=== PATIENT | male | born 1965 | race Caucasian/White ===

== ENCOUNTER 2021-06-30 10:19 | Inpatient (IN) | payer BC ==
[~2021-06-30] VITALS: Ht 182.9 cm; Wt 100.0 kg
[2021-06-30 11:11] LABS: BASOPHILS # (AUTO) 0.1 X10'3 (0-0.2); EOSINOPHILS # (AUTO) 0.2 X10'3 (0-0.9); EOSINOPHILS % (AUTO) 2.5 % (0-6); HEMATOCRIT 47.2 % (42.0-52.0); HEMOGLOBIN 15.9 g/dl (14.0-17.9); LYMPHOCYTES % (AUTO) 32.4 % (21-51); MEAN CORPUSCULAR HEMOGLOBIN 30.9 PG (27.0-31.0); MEAN CORPUSCULAR HGB CONC 33.8 g/dL (33.0-36.5); MEAN CORPUSCULAR VOLUME 91.4 FL (78-98); MEAN PLATELET VOLUME 7.1 FL (7.4-10.4); MONOCYTES # (AUTO) 0.6 X10'3 (0-0.9); MONOCYTES % (AUTO) 9.2 % (2-12); NEUTROPHILS # (AUTO) 3.5 X10'3 (1.8-7.7); NEUTROPHILS % (AUTO) 54.9 % (42-75); PLATELET COUNT 200 X10'3 (140-440); RED BLOOD COUNT 5.16 X10'6 (4.70-6.10); WHITE BLOOD COUNT 6.3 X10'3 (4.5-11.0)
[2021-06-30 11:29] LABS: ALANINE AMINOTRANSFERASE 24 U/L (12-78); ALBUMIN 4.3 G/DL (3.4-5.0); ALBUMIN/GLOBULIN RATIO 1.3 (1.1-1.5); ALKALINE PHOSPHATASE 45 IU/L (46-116); ANION GAP 8 (8-16); ASPARTATE AMINO TRANSFERASE 19 U/L (10-37); BLOOD UREA NITROGEN 14 MG/DL (7-18); BUN/CREATININE RATIO 20.6 (5.4-32.0); CALCIUM 8.9 MG/DL (8.5-10.1); CHLORIDE 107 MMOL/L (99-107); CREATININE 0.68 MG/DL (0.60-1.10); GLUCOSE 125 MG/DL (70-104); POTASSIUM 4.6 MMOL/L (3.5-5.1); SODIUM 140 MMOL/L (135-145); TOTAL CARBON DIOXIDE 25.1 MMOL/L (24-32); TOTAL PROTEIN 7.5 G/DL (6.4-8.2); eGFR > 90 ML/MIN
[2021-06-30 11:37] LABS: LIPASE 1168 U/L (73-393); MAGNESIUM 2.1 MG/DL (1.5-2.4)
[2021-06-30 11:47] LABS: APTT 26 SECONDS (22-32)
--- NOTE | 2021-06-30 11:53 | NUR ---
Pt moved to ER bed 10
[2021-06-30 12:23] LABS: CHOLESTEROL 238 MG/DL (0-200)
[2021-06-30] MEDS ORDERED: piperacillin/tazo 3.375gm/50ml 50 ML IV ONE (12:30)
[2021-06-30] MEDS ORDERED: normal saline 1000ML IV soln IVB ONE (12:30)
[2021-06-30] MEDS ORDERED: ATOR10TA70 PO (12:57)
[2021-06-30] MEDS ORDERED: LISI-644 PO (12:57)
[2021-06-30] MEDS ORDERED: LISI20TA28 PO (12:57)
[2021-06-30] MEDS ORDERED: LEVO75TA PO (12:57)
[2021-06-30] MEDS ORDERED: LABE100T5 PO (12:57)
[2021-06-30] MEDS ORDERED: ondansetron/PF 4mg/2ml inj IV PRN (13:10)
[2021-06-30] MEDS ORDERED: magnesium Cl slow-release 64mg tablet PO PRN (13:10)
[2021-06-30] MEDS ORDERED: magnesium 2GM in 50ml NS 50 ML IV PRN (13:10)
[2021-06-30] MEDS ORDERED: potassium Cl 20 mEq SR tablet PO PRN ×2 (13:10)
[2021-06-30] MEDS ORDERED: potassium CL 10mEq/100ml bag 100 ML IV PRN (13:10)
[2021-06-30] MEDS ORDERED: magnesium 4gm in 100ml NS 100 ML IV PRN (13:10)
[2021-06-30] MEDS: normal saline 1000ml 1,000 ML IV SCH ×2 (13:18→20:56)
[2021-06-30 13:58] LABS: POTASSIUM 4.2 MMOL/L (3.5-5.1)
--- NOTE | 2021-06-30 17:51 | NUR ---
PT. TUCKED IN TO ROOM 346b. FLUIDS STARTED. VS TAKEN AND WNL. NPO SIGN UP. PT. DENIES ANY NEED FOR PAIN MEDICATIONS AT THIS TIME.
[2021-06-30 17:56] VITALS: BP 146/88
--- NOTE | 2021-06-30 18:14 | NUR ---
gAVE REPORT TO Kelsey LEBRON
--- NOTE | 2021-06-30 18:25 | NUR ---
Patient in room [facility]. I have received report from CHRISTEL LEBRON and had the opportunity to ask questions and assume patient care.
[2021-06-30] MEDS: HYDROcodone/acetaminophen 5mg/325mg tablet PO PRN (19:13)
[2021-06-30] MEDS: K and/or MAG REPLACEMENT MC SCH (20:00)
[2021-06-30] MEDS: labetalol 100mg tablet PO SCH (20:55)
[2021-06-30] MEDS ORDERED: lisinopril 20mg tablet PO SCH (21:00)
[2021-06-30] MEDS ORDERED: diatr meglu/diatrizoate 30ml oral sol.-(3 dose) bottle PO SCH (21:00)
--- NOTE | 2021-06-30 21:55 | NUR ---
CT SCAN WITH IV CONTRAST ORDER CCOMFIRMED WITH DR VASQUEZ.
[2021-07-01] VITALS (17 sets, daily range): BP systolic 100–133; BP diastolic 52–98
[2021-07-01] MEDS: HYDROcodone/acetaminophen 5mg/325mg tablet PO PRN (04:07)
[2021-07-01 06:17] LABS: BASOPHILS % (AUTO) 0.4 % (0-1); EOSINOPHILS # (AUTO) 0.2 X10'3 (0-0.9); EOSINOPHILS % (AUTO) 3.1 % (0-6); HEMATOCRIT 42.2 % (42.0-52.0); HEMOGLOBIN 14.2 g/dl (14.0-17.9); LYMPHOCYTES # (AUTO) 1.7 X10'3 (1.1-4.8); LYMPHOCYTES % (AUTO) 33.8 % (21-51); MEAN CORPUSCULAR HEMOGLOBIN 30.6 PG (27.0-31.0); MEAN CORPUSCULAR HGB CONC 33.6 g/dL (33.0-36.5); MEAN CORPUSCULAR VOLUME 91.3 FL (78-98); MEAN PLATELET VOLUME 7.1 FL (7.4-10.4); MONOCYTES # (AUTO) 0.5 X10'3 (0-0.9); MONOCYTES % (AUTO) 10.1 % (2-12); NEUTROPHILS # (AUTO) 2.7 X10'3 (1.8-7.7); NEUTROPHILS % (AUTO) 52.6 % (42-75); PLATELET COUNT 190 X10'3 (140-440); RED BLOOD COUNT 4.62 X10'6 (4.70-6.10); WHITE BLOOD COUNT 5.1 X10'3 (4.5-11.0)
[2021-07-01 06:29] LABS: APTT 27 SECONDS (22-32)
--- NOTE | 2021-07-01 06:33 | NUR ---
Problems reprioritized. Patient report given, questions answered & plan of care reviewed with CHRISTEL LEBRON..
[2021-07-01 06:39] LABS: ALBUMIN 3.6 G/DL (3.4-5.0); ANION GAP 11 (8-16); BLOOD UREA NITROGEN 10 MG/DL (7-18); CALCIUM 8.3 MG/DL (8.5-10.1); CHLORIDE 108 MMOL/L (99-107); CREATININE 0.77 MG/DL (0.60-1.10); GLUCOSE 116 MG/DL (70-104); POTASSIUM 4.1 MMOL/L (3.5-5.1); SODIUM 145 MMOL/L (135-145); TOTAL CARBON DIOXIDE 25.8 MMOL/L (24-32); eGFR > 90 ML/MIN
[2021-07-01] MEDS ORDERED: BUPIVAcaine 0.5% inj/PF 30 ML ONE (07:11)
[2021-07-01] MEDS: levoTHYROXINE 75mcg tablet PO SCH (08:00)
[2021-07-01] MEDS: labetalol 100mg tablet PO SCH ×2 (08:00→20:10)
[2021-07-01] MEDS: K and/or MAG REPLACEMENT MC SCH ×2 (08:00→20:00)
[2021-07-01] MEDS: atorvastatin 10mg tablet PO SCH (08:00)
[2021-07-01] MEDS: lisinopril 20mg tablet PO SCH (08:00)
[2021-07-01] MEDS ORDERED: iohexol 300mg/ml 100ml inj. ONE (08:30)
--- NOTE | 2021-07-01 08:41 | NUR ---
pT. DOWN TO CT SCAN WITH iv CONTRAST
--- NOTE | 2021-07-01 08:50 | NUR ---
CALLED REPORT TO [facility]
[2021-07-01] MEDS ORDERED: INDOCYANINE GREEN 25 MG/10 ML VIAL IV ONE (08:53)
[2021-07-01] MEDS: normal saline 1000ml 1,000 ML IV SCH ×3 (09:10→22:55)
[2021-07-01] MEDS ORDERED: ringers solution, lacted 1,000 ML IV SCH (09:30)
[2021-07-01] MEDS ORDERED: proCHLORperazine 10 MG/2 ml inj IV PRN (09:30)
[2021-07-01] MEDS ORDERED: morphine 2 MG/ML inj. syringe IV PRN (09:30)
[2021-07-01] MEDS ORDERED: morphine 4 MG/ML inj SYRINge IV PRN (09:30)
[2021-07-01] MEDS ORDERED: meperidine/PF 25mg/ml syringe IV PRN ×3 (09:30)
[2021-07-01] MEDS ORDERED: ondansetron/PF 4mg/2ml inj IV PRN (09:30)
[2021-07-01] MEDS ORDERED: midazolam 1 mg/ML 2ml injection ONE (09:39)
[2021-07-01] MEDS ORDERED: propofol inj 20 ML IV ONE (09:40)
[2021-07-01] MEDS ORDERED: rocuronium 10mg/ml inj IV ONE (09:40)
[2021-07-01] MEDS ORDERED: fentaNYL /PF 50mcg/ml 5ml ampule ONE (09:40)
--- NOTE | 2021-07-01 09:52 | NUR ---
OR CHARGE AWARE PT HAS NOT BEEN WIPED DOWN, NO BG CHECK, AND THAT AM MEDS INCLUDING BETA LORENA NOT GIVEN YET.
[2021-07-01] MEDS ORDERED: ceFOXitin 1000 MG inj ONE ×2 (09:56)
[2021-07-01] MEDS ORDERED: dexamethasone sod phosphate 4mg/ml inj. ONE (09:56)
[2021-07-01 10:15] LABS: LIPASE 86 U/L (73-393)
[2021-07-01] MEDS ORDERED: glycopyrrolate 0.2mg/ml inj ONE (10:40)
[2021-07-01] MEDS ORDERED: ondansetron/PF 4mg/2ml inj ONE (10:40)
[2021-07-01] MEDS ORDERED: neostigmine methylsulfate 1 MG/ML 10ml vial ONE (10:40)
[2021-07-01] MEDS ORDERED: sugammadex 200mg/2ml injection IV ONE (11:00)
--- NOTE | 2021-07-01 11:04 | NUR ---
Received from OR via GREGORY , accompanied by Anesthesiologist MOLINA and report given by Anesthesiolgist. PATIENT WITH 20G PIV IN RIGHT UE RUNNING LR AT 100. DENIES PAIN AT THIS TIME. 10L MASK ON WITH 98% SATURATIONS. VSS. 4 ABDOMINAL BANDAIDS PRESENT AND VSS AT THIS TIME. DENIES PAIN. Addendum: 07/01/21 at 1111 by Harpreet Garcia RN, RN Amended: Links added.
[2021-07-01] MEDS ORDERED: hydrALAZINE 20mg/ml inj. IV PRN (11:30)
--- NOTE | 2021-07-01 12:04 | NUR ---
PATIENT HAS MET ALL CRITERIA FOR TRANSFER TO THE SURGICAL FLOOR. VSS. DRESSINGS INTACT. BED LOW, CALL LIGHT PRESENT AND 2 RAILS UP. RN PRESENT TO ACCEPT CARE OF PATIENT AND REPORT HAS BEEN CALLED. ALL QUESTIONS ANSWERED TO ACCEPTING RN. VSS. AND DAUGHTER PRESENT, GLASSES ON AND BLANKET RETURNED TO PATIENT. VSS. PASSIVE TRANSFER X2 TO GET BACK TO BED FROM GURNEY AND SLIDE BOARD. PATIENT RN PRESENT TO ACCEPT CARE AND TO ASSESS PATIENT. Addendum: 07/01/21 at 1224 by Harpreet Sy - VI RN Amended: Links added.
--- NOTE | 2021-07-01 12:23 | NUR ---
Pt. arrived from recovery. Rambling inappropriately but is oriented. Asking for food. Transferred to bed on 3LPM 02, 93% SA02 VS WNL. Family at bedside at this time.
[2021-07-01] MEDS: HYDROcodone/acetaminophen 10/325mg tab PO PRN ×2 (15:42→18:57)
[2021-07-01] MEDS: ceFOXitin inj 1,000 MG in normal saline 100ml IV soln 100 ML IV SCH ×2 (17:33→23:28)
[2021-07-01] MEDS: morphine 2 MG/ML inj. syringe IV PRN ×2 (17:42→23:28)
--- NOTE | 2021-07-01 18:18 | NUR ---
gAVE REPORT TO LUCAS LEBRON
--- NOTE | 2021-07-01 18:21 | NUR ---
Patient in room [facility]. I have received report from CHRISTEL LEBRON and had the opportunity to ask questions and assume patient care.
[2021-07-02] VITALS: BP 117/66
[2021-07-02] MEDS: morphine 2 MG/ML inj. syringe IV PRN ×2 (04:34→11:13)
[2021-07-02] MEDS: normal saline 1000ml 1,000 ML IV SCH ×3 (05:26→19:15)
--- NOTE | 2021-07-02 06:31 | NUR ---
Problems reprioritized. Patient report given, questions answered & plan of care reviewed with RAY RN.
--- NOTE | 2021-07-02 06:34 | NUR ---
Patient in room [facility] 346. I have received report from LUCAS LEBRON and had the opportunity to ask questions and assume patient care.
[2021-07-02 06:41] LABS: ALBUMIN 3.3 G/DL (3.4-5.0); ANION GAP 7 (8-16); BLOOD UREA NITROGEN 12 MG/DL (7-18); BUN/CREATININE RATIO 18.8 (5.4-32.0); CHLORIDE 109 MMOL/L (99-107); CREATININE 0.64 MG/DL (0.60-1.10); GLUCOSE 128 MG/DL (70-104); SODIUM 144 MMOL/L (135-145); TOTAL CARBON DIOXIDE 28.5 MMOL/L (24-32); eGFR > 90 ML/MIN
[2021-07-02 06:42] LABS: BASOPHILS % (AUTO) 0.1 % (0-1); EOSINOPHILS % (AUTO) 0.1 % (0-6); HEMATOCRIT 37.8 % (42.0-52.0); LYMPHOCYTES # (AUTO) 1.6 X10'3 (1.1-4.8); MEAN CORPUSCULAR HEMOGLOBIN 31.3 PG (27.0-31.0); MEAN CORPUSCULAR HGB CONC 34.5 g/dL (33.0-36.5); MEAN CORPUSCULAR VOLUME 90.8 FL (78-98); MEAN PLATELET VOLUME 7.2 FL (7.4-10.4); MONOCYTES % (AUTO) 7.3 % (2-12); NEUTROPHILS # (AUTO) 10.7 X10'3 (1.8-7.7); NEUTROPHILS % (AUTO) 80.5 % (42-75); PLATELET COUNT 183 X10'3 (140-440); RED BLOOD COUNT 4.16 X10'6 (4.70-6.10); RED CELL DISTRIBUTION WIDTH 12.7 % (11.5-14.5); WHITE BLOOD COUNT 13.3 X10'3 (4.5-11.0)
--- NOTE | 2021-07-02 07:15 | NUR ---
Dr Alcala stated pt will be ready to DC home from a surgical perspective when pt has gas/ bowel activity. VI Rainey notified.
[2021-07-02] MEDS: atorvastatin 10mg tablet PO SCH (07:46)
[2021-07-02] MEDS: levoTHYROXINE 75mcg tablet PO SCH (07:46)
[2021-07-02] MEDS: labetalol 100mg tablet PO SCH ×2 (07:46→19:42)
[2021-07-02] MEDS: lisinopril 20mg tablet PO SCH (07:47)
[2021-07-02] MEDS: HYDROcodone/acetaminophen 10/325mg tab PO PRN ×3 (07:51→20:06)
[2021-07-02 07:59] VITALS: BP 120/65
[2021-07-02] MEDS: K and/or MAG REPLACEMENT MC SCH ×2 (08:00→20:00)
[2021-07-02] MEDS: metroNIDAZOLE-Flagyl 500mg/NS 100 ML IV SCH ×2 (09:31→16:27)
[2021-07-02] MEDS: ciprofloxacin 250mg tablet PO SCH ×2 (10:26→21:30)
[2021-07-02 11:00] VITALS: BP 123/70
[2021-07-02 18:00] VITALS: BP 128/68
--- NOTE | 2021-07-02 18:05 | NUR ---
Problems reprioritized. Patient report given, questions answered & plan of care reviewed with PRUDENCE RN.
--- NOTE | 2021-07-02 18:43 | NUR ---
Patient in room [facility] 346. I have received report from RAY LEBRON and had the opportunity to ask questions and assume patient care.
[2021-07-03] VITALS: BP 110/65
[2021-07-03] MEDS: metroNIDAZOLE-Flagyl 500mg/NS 100 ML IV SCH ×2 (00:03→07:11)
[2021-07-03] MEDS: normal saline 1000ml 1,000 ML IV SCH (02:45)
--- NOTE | 2021-07-03 06:01 | NUR ---
Student documentation: I have reviewed and agree with all interventions, assessments performed and documented by CATALINA VILLA.
--- NOTE | 2021-07-03 06:01 | NUR ---
Student Medication Administration: For this medication-pass time frame, all medication were reviewed, dispensed, administered and documented per hospital policy by CATALINA VILLA.
--- NOTE | 2021-07-03 06:23 | NUR ---
Patient report given, questions answered & plan of care reviewed with Redd RN.
--- NOTE | 2021-07-03 06:23 | NUR ---
Problems reprioritized. Patient report given, questions answered & plan of care reviewed with RAY RN.
--- NOTE | 2021-07-03 06:29 | NUR ---
Patient in room [facility] 346. I have received report from Junie LEBRON and had the opportunity to ask questions and assume patient care.
[2021-07-03 07:00] VITALS: BP 163/93
[2021-07-03 07:04] LABS: BASOPHILS # (AUTO) 0.1 X10'3 (0-0.2); BASOPHILS % (AUTO) 0.8 % (0-1); EOSINOPHILS # (AUTO) 0.1 X10'3 (0-0.9); EOSINOPHILS % (AUTO) 1.8 % (0-6); HEMATOCRIT 39.4 % (42.0-52.0); HEMOGLOBIN 13.4 g/dl (14.0-17.9); LYMPHOCYTES # (AUTO) 2.5 X10'3 (1.1-4.8); LYMPHOCYTES % (AUTO) 32.5 % (21-51); MEAN CORPUSCULAR HEMOGLOBIN 31.5 PG (27.0-31.0); MEAN CORPUSCULAR VOLUME 92.9 FL (78-98); MEAN PLATELET VOLUME 7.1 FL (7.4-10.4); MONOCYTES # (AUTO) 0.7 X10'3 (0-0.9); MONOCYTES % (AUTO) 8.9 % (2-12); NEUTROPHILS # (AUTO) 4.4 X10'3 (1.8-7.7); PLATELET COUNT 180 X10'3 (140-440); RED BLOOD COUNT 4.24 X10'6 (4.70-6.10); WHITE BLOOD COUNT 7.8 X10'3 (4.5-11.0)
[2021-07-03] MEDS ORDERED: lisinopril 10 MG tablet PO SCH (07:08)
[2021-07-03] MEDS: levoTHYROXINE 75mcg tablet PO SCH (07:10)
[2021-07-03] MEDS: atorvastatin 10mg tablet PO SCH (07:10)
[2021-07-03] MEDS: labetalol 100mg tablet PO SCH (07:11)
[2021-07-03 07:28] VITALS: BP 163/93
[2021-07-03 07:49] LABS: ALBUMIN 3.5 G/DL (3.4-5.0); ANION GAP 11 (8-16); BLOOD UREA NITROGEN 13 MG/DL (7-18); BUN/CREATININE RATIO 16.9 (5.4-32.0); CALCIUM 8.1 MG/DL (8.5-10.1); CHLORIDE 107 MMOL/L (99-107); CHOL/HDL RATIO 3.8 (0.00-4.99); CHOLESTEROL 167 MG/DL (0-200); CREATININE 0.77 MG/DL (0.60-1.10); GLUCOSE 103 MG/DL (70-104); HDL CHOLESTEROL 44 MG/DL (35-60); LDL CHOLESTEROL 97 MG/DL (50-100); MAGNESIUM 1.8 MG/DL (1.5-2.4); POTASSIUM 3.8 MMOL/L (3.5-5.1); SODIUM 145 MMOL/L (135-145); TOTAL CARBON DIOXIDE 27.5 MMOL/L (24-32); TRIGLYCERIDES 125 MG/DL (20-135); eGFR > 90 ML/MIN
[2021-07-03] MEDS: K and/or MAG REPLACEMENT MC SCH (08:00)
--- NOTE | 2021-07-03 08:00 | NUR ---
Went to hang patient ABX, previous antibiotic was hung as a secondary with the primary at the same level of the secondary medication. The medication did not infuse and was full.
[2021-07-03] MEDS ORDERED: HYDR-3965 PO (10:33)
[2021-07-03 11:00] VITALS: BP 140/79
[2021-07-03] MEDS: ciprofloxacin 250mg tablet PO SCH (11:03)
[2021-07-03] MEDS: HYDROcodone/acetaminophen 5mg/325mg tablet PO PRN (11:05)
--- NOTE | 2021-07-03 12:00 | NUR ---
Patient and family (daughter) were at bedside for discharge instructions. Informed patient of follow-up recommendations including follow-up with PCP and Dr. Harper. Discussed discharge medications and when he is due for his next doses. Patient was also given return precautions. Patient and daughter verbalized understanding of all discharge instructions. They deny any further questions or concerns at this time and state they are comfortable with discharge home. IV in the RUE was discontinued. Patient was placed in a wheelchair and I transported the patient to the [facility] where his daughter had their car waiting.
--- NOTE | 2021-07-03 13:00 | NUR ---
Student documentation: I have reviewed and agree with all interventions, assessments performed and documented by Oliva KHOURY. Student Medication Administration: For this medication-pass time frame, all medication were reviewed, dispensed, administered and documented per hospital policy by Oliva KHOURY.
== END 2021-07-03 12:10 | disposition home or self-care (01) | DRG 418 ==
LOC: ER 10:20 → ED HOLD 13:10 → SUR 3N 17:41
PROVIDERS: ADMIT Internal Medicine; ATTEND Internal Medicine
PROC: BW211ZZ Computerized Tomography (CT Scan) of Abdomen and Pelvis using Low Osmolar Contrast (ICD-10-PCS; 2021-07-01)
PROC: 0FT44ZZ Resection of Gallbladder, Percutaneous Endoscopic Approach (ICD-10-PCS; principal; 2021-07-01 09:34)
DX: K85.10 Biliary acute pancreatitis without necrosis or infection (principal); K80.10 Calculus of gallbladder with chronic cholecystitis without obstruction; K82.8 Other specified diseases of gallbladder; Z20.822 Contact with and (suspected) exposure to COVID-19; H53.8 Other visual disturbances; M25.512 Pain in left shoulder; F17.210 Nicotine dependence, cigarettes, uncomplicated; E03.9 Hypothyroidism, unspecified; J44.9 Chronic obstructive pulmonary disease, unspecified; I10 Essential (primary) hypertension; E78.5 Hyperlipidemia, unspecified; I25.2 Old myocardial infarction; Z79.899 Other long term (current) drug therapy
CPT/HCPCS: 99285; Z7506; Z7508; 36415; 71045; 74177; 76700; 80048; 80053; 80061; 82465; 83605; 83690; 83735; 83880; 84132; 84145; 84443; 84484; 85025; 85610; 85730; 87040; 87081; 87502; 87503; 87635; 88304; 93005; A4215; A4314; A4618; A7000; C9803; G0378; J0694; J1100; J2175; J2250; J2270; J2405; J2543; J2704; J2710; J3010; J3490; J7030; Q9963; Q9967; S0020

== ENCOUNTER 2021-12-22 11:14 | Emergency (ER) | payer BC ==
[~2021-12-22] VITALS: Ht 182.9 cm; Wt 97.7 kg
[~2021-12-22 11:14] MED LIST: ATOR10TA70 PO; LABE100T8 PO; LEVO75TA PO; LISI-644 PO; LISI20TA28 PO
[2021-12-22 12:48] LABS: BASOPHILS % (AUTO) 0.6 % (0-1); EOSINOPHILS # (AUTO) 0.2 X10'3 (0-0.9); HEMATOCRIT 45.6 % (42.0-52.0); HEMOGLOBIN 15.6 g/dl (14.0-17.9); LYMPHOCYTES # (AUTO) 1.3 X10'3 (1.1-4.8); LYMPHOCYTES % (AUTO) 22.2 % (21-51); MEAN CORPUSCULAR HEMOGLOBIN 30.9 PG (27.0-31.0); MEAN CORPUSCULAR HGB CONC 34.2 g/dL (33.0-36.5); MEAN CORPUSCULAR VOLUME 90.6 FL (78-98); MEAN PLATELET VOLUME 7.1 FL (7.4-10.4); MONOCYTES # (AUTO) 0.8 X10'3 (0-0.9); MONOCYTES % (AUTO) 13.3 % (2-12); NEUTROPHILS # (AUTO) 3.6 X10'3 (1.8-7.7); NEUTROPHILS % (AUTO) 59.9 % (42-75); PLATELET COUNT 188 X10'3 (140-440); RED BLOOD COUNT 5.04 X10'6 (4.70-6.10); RED CELL DISTRIBUTION WIDTH 13.4 % (11.5-14.5); WHITE BLOOD COUNT 6.1 X10'3 (4.5-11.0)
[2021-12-22 12:49] LABS: ALANINE AMINOTRANSFERASE 46 U/L (12-78); ALBUMIN/GLOBULIN RATIO 1.2 (1.1-1.5); ALKALINE PHOSPHATASE 57 IU/L (46-116); ANION GAP 8 (8-16); ASPARTATE AMINO TRANSFERASE 29 U/L (10-37); BILIRUBIN,TOTAL 0.8 MG/DL (0.1-1.0); BLOOD UREA NITROGEN 9 MG/DL (7-18); CALCIUM 8.8 MG/DL (8.5-10.1); CHLORIDE 104 MMOL/L (99-107); CREATININE 0.82 MG/DL (0.60-1.10); GLUCOSE 122 MG/DL (70-104); LIPASE 79 U/L (73-393); POTASSIUM 4.3 MMOL/L (3.5-5.1); SODIUM 140 MMOL/L (135-145); TOTAL CARBON DIOXIDE 27.9 MMOL/L (24-32); TOTAL PROTEIN 7.4 G/DL (6.4-8.2); eGFR > 90 ML/MIN
[2021-12-22 15:09] LABS: CLARITY,URINE CLEAR (Clear); COLOR,URINE YELLOW (Yellow); GLUCOSE, URINE NEGATIVE (Neg); KETONES,URINE NEGATIVE (Neg); LEUKOCYTE ESTERASE ,URINE NEGATIVE (Neg); NITRITES, URINE NEGATIVE (Neg); OCCULT BLOOD,URINE NEGATIVE (Neg); PH,URINE 5.5 (4.8-8.0); PROTEIN,URINE NEGATIVE (Neg); UROBILINOGEN,URINE 0.2 E.U/dL (0.2-1.0)
[2021-12-22 15:17] LABS: UA COLLECTION TYPE CLN CATCH MIDSTREAM
--- NOTE | 2021-12-22 16:06 | NUR ---
Pt left ED for CT abd
--- NOTE | 2021-12-22 16:17 | NUR ---
Pt came back from CT in wheelchair, no stress noted.
[2021-12-22] MEDS ORDERED: ONDA4TAB12 PO (16:45)
[2021-12-22] MEDS ORDERED: ondansetron 4mg rapidly disintigrating tab PO ONE (16:45)
[2021-12-22 17:06] VITALS: BP 149/96
== END 2021-12-22 17:08 | disposition home or self-care (01) ==
LOC: ER 11:15
DX: R10.9 Unspecified abdominal pain (principal); R19.7 Diarrhea, unspecified; R11.0 Nausea; E78.00 Pure hypercholesterolemia, unspecified; I10 Essential (primary) hypertension; Z90.49 Acquired absence of other specified parts of digestive tract; Z79.899 Other long term (current) drug therapy; Z88.8 Allergy status to other drugs, medicaments and biological substances
CPT/HCPCS: 36415; 74176; 80053; 81003; 83690; 85025; 93005; 99285